=== PATIENT | male | born 1960 | race African-American/Black ===

== ENCOUNTER 2018-10-23 11:32 | Emergency (ER) | payer MEDICAID ==
[~2018-10-23] VITALS: Ht 177.8 cm; Wt 69.0 kg
[2018-10-23] MEDS ORDERED: KETOROLAC 30MG/ML VIAL IV STA (11:58)
[2018-10-23] MEDS ORDERED: SODIUM CHLORIDE 0.9% 1,000 ML IV ONE (11:58)
[2018-10-23 12:44] LABS: HEMATOCRIT. 47.8 % (42.0-52.0); HEMOGLOBIN. 16.4 g/dL (14.0-18.0); MEAN CORPUSCULAR VOLUME 90.5 fL (80.0-94.0); MEAN PLATELET VOLUME 8.4 fl (7.4-10.4); PLATELET 211 x1000/uL (130-400); RED BLOOD CELL COUNT 5.29 mill/uL (4.7-6.1); RED CELL DISTRIBUTION WIDTH 14.9 % (11.6-14.6)
[2018-10-23 12:49] LABS: CHLORIDE 105 mEq/L (98-107)
[2018-10-23 12:52] LABS: PROTHROMBIN TIME 9.9 sec (9.1-11.1)
[2018-10-23 12:55] LABS: ETHANOL BLOOD < 10 mg/dL
[2018-10-23 13:00] LABS: CREATINE KINASE 326 IU/L (39-308)
[2018-10-23 13:02] LABS: CREATINE KINASE MB FRACTION 7.1 ng/mL (0.5-3.6)
[2018-10-23 13:23] LABS: COLOR URINE AMBER (YELLOW); KETONES URINE 1+ (NEGATIVE); LEUKOCYTE ESTERASE URINE NEGATIVE (NEGATIVE); NITRITE URINE NEGATIVE (NEGATIVE); OCCULT BLOOD URINE NEGATIVE (NEGATIVE); PH URINE 5.5 (4.5-8.0); PROTEIN URINE 1+ (NEGATIVE); SPECIFIC GRAVITY URINE 1.029 (1.005-1.030); UROBILINOGEN URINE 0.2 E.U./dL (0.2-1.0)
[2018-10-23 13:27] LABS: CLARITY URINE SL HAZY (CLEAR)
[2018-10-23 13:42] LABS: *AMPHETAMINES SCREEN URINE NEGATIVE (NEGATIVE); *BARBITURATES SCREEN URINE NEGATIVE (NEGATIVE); *BENZODIAZEPINES SCREEN URINE NEGATIVE (NEGATIVE); *COCAINE SCREEN URINE PRESUMTIVE POSITIVE (NEGATIVE)
[2018-10-23 13:43] LABS: CANNABINOID URINE SCREEN PRESUMTIVE POSITIVE (NEGATIVE); METHADONE URINE SCREEN NEGATIVE (NEGATIVE); OPIATES URINE SCREEN NEGATIVE (NEGATIVE); PHENCYCLIDINE URINE SCREEN NEGATIVE (NEGATIVE)
[2018-10-23 13:51] LABS: PLATELET ESTIMATE NORMAL
[2018-10-23 15:15] VITALS: BP 116/58
== END 2018-10-23 15:15 | disposition home or self-care (01) ==
LOC: ER 11:32
DX: M79.18 Myalgia, other site (principal); F14.10 Cocaine abuse, uncomplicated; N28.9 Disorder of kidney and ureter, unspecified
CPT/HCPCS: 36415; 71045; 80053; 80305; 81003; 82010; 82550; 82553; 82962; 83690; 83735; 83880; 84484; 85025; 85610; 93005; 96374; 99284; G0482; J1885; J7030

== ENCOUNTER 2019-05-23 12:19 | Emergency (ER) | payer MEDICAID ==
[~2019-05-23] VITALS: Ht 182.9 cm; Wt 73.0 kg
[2019-05-23] MEDS ORDERED: KETOROLAC 30MG/ML VIAL IV STA (15:09)
[2019-05-23] MEDS ORDERED: ASPIRIN 81MG TABLET PO ONE (15:15)
[2019-05-23 15:19] LABS: BASOPHILS % 0.9 % (0.0-2.0); EOSINOPHILS % 4.6 % (0.0-5.0); HEMATOCRIT. 42.7 % (42.0-52.0); HEMOGLOBIN. 14.6 g/dL (14.0-18.0); LYMPHOCYTES % 41.1 % (20.0-50.0); MEAN CORPUSCULAR HEMOGLOBIN 29.8 pg (28.0-32.0); MEAN CORPUSCULAR VOLUME 87.5 fL (80.0-94.0); MEAN PLATELET VOLUME 8.2 fl (7.4-10.4); MONOCYTES % 9.2 % (2.0-8.0); NEUTROPHILS % 44.2 % (40.0-76.0); PLATELET 189 x1000/uL (130-400); RED BLOOD CELL COUNT 4.88 mill/uL (4.7-6.1); RED CELL DISTRIBUTION WIDTH 16.8 % (11.6-14.6)
[2019-05-23 15:22] LABS: CHLORIDE 106 mEq/L (98-107)
[2019-05-23 16:33] VITALS: BP 116/83
== END 2019-05-23 16:34 | disposition home or self-care (01) ==
LOC: ER 12:57
DX: R07.89 Other chest pain (principal); G89.29 Other chronic pain; M79.605 Pain in left leg; M79.642 Pain in left hand; E11.9 Type 2 diabetes mellitus without complications; F12.10 Cannabis abuse, uncomplicated; H40.9 Unspecified glaucoma; F17.290 Nicotine dependence, other tobacco product, uncomplicated; Z98.890 Other specified postprocedural states; Z87.11 Personal history of peptic ulcer disease
CPT/HCPCS: 36415; 71045; 80053; 83880; 84484; 85025; 93005; 96374; 99284; 99406; J1885

== ENCOUNTER 2025-08-06 11:59 | Inpatient (IN) | payer MEDICAID ==
[~2025-08-06] VITALS: Ht 180.3 cm; Wt 69.2 kg
[2025-08-06 12:01] VITALS: O2SAT 98
[2025-08-06 12:41] LABS: BASOPHILS % 0.5 % (0.0-2.0); EOSINOPHILS % 0.4 % (0.0-5.0); HEMATOCRIT. 47.4 % (42.0-52.0); HEMOGLOBIN. 15.4 g/dL (14.0-18.0); LYMPHOCYTES % 11.9 % (20.0-50.0); MEAN PLATELET VOLUME 8.4 fl (7.4-10.4); MONOCYTES % 6.0 % (2.0-8.0); NEUTROPHILS % 81.2 % (40.0-76.0); PLATELET 136 x1000/uL (130-400); RED BLOOD CELL COUNT 5.18 mill/uL (4.7-6.1); RED CELL DISTRIBUTION WIDTH 15.2 % (11.6-14.6)
[2025-08-06 12:57] LABS: CREATININE 1.3 mg/dL (0.6-1.3); UREA NITROGEN BLOOD 9 mg/dL (9-23)
[2025-08-06 12:58] LABS: ETHANOL BLOOD < 10 mg/dL (<10)
[2025-08-06] MEDS ORDERED: ACETAMINOPHEN 325MG TABLET PO PRN (15:30)
[2025-08-06] MEDS ORDERED: CLONIDINE 0.1MG TABLET PO PRN (15:30)
[2025-08-06] MEDS ORDERED: ZOLPIDEM TARTRATE 5MG TABLET PO PRN (15:30)
[2025-08-06] MEDS ORDERED: ONDANSETRON HCL 4MG/2ML INJ IV PRN (15:30)
[2025-08-06] MEDS ORDERED: MAGNESIUM/ALUMINUM HYDROXIDE/SIMETHICONE 30ML UDC PO PRN (15:30)
[2025-08-06] MEDS ORDERED: NALOXONE HCL 0.4MG/ML VIAL IV PRN (15:45)
[2025-08-06 18:04] VITALS: BP 140/80; PULSE 90; RESP 20; TEMP 36.9184
[2025-08-06] MEDS: PNEUMOCOCCAL 20-VAL CONJ-DIP CRM 0.5ML IM ONE (19:24)
[2025-08-06 20:00] VITALS: BP 133/90; PULSE 67; RESP 19; TEMP 36.6; O2SAT 97
[2025-08-06] MEDS: ENOXAPARIN 40MG/0.4ML SYR SUBCUT SCH (20:23)
[2025-08-06] MEDS: SODIUM CHLORIDE 0.9% 1,000 ML IV SCH (20:23)
[2025-08-06] MEDS: HYDROCODONE/ACETAMINOPHEN 5/325MG TABLET PO PRN (23:18)
[2025-08-07 00:02] LABS: CLARITY URINE CLEAR (CLEAR); COLOR URINE YELLOW (YELLOW); GLUCOSE URINE NEGATIVE (NEGATIVE); KETONES URINE NEGATIVE (NEGATIVE); LEUKOCYTE ESTERASE URINE NEGATIVE (NEGATIVE); NITRITE URINE NEGATIVE (NEGATIVE); OCCULT BLOOD URINE TRACE (NEGATIVE); PH URINE 5.5 (4.5-8.0); PROTEIN URINE NEGATIVE (NEGATIVE); SPECIFIC GRAVITY URINE 1.011 (1.005-1.030); UROBILINOGEN URINE 1.0 E.U./dL (0.2-1.0)
[2025-08-07 00:10] LABS: RBC URINE NONE SEEN /hpf (0-2); SQUAMOUS EPITHELIAL CELL URINE FEW /lpf (RARE/1+); WBC URINE 0-2 /hpf (0-2)
[2025-08-07 00:11] LABS: BACTERIA URINE NONE SEEN
[2025-08-07 00:18] VITALS: BP 128/82; PULSE 86; RESP 17; TEMP 36.6; O2SAT 99
[2025-08-07 00:18] LABS: *AMPHETAMINES SCREEN URINE NEGATIVE (NEGATIVE); *BARBITURATES SCREEN URINE NEGATIVE (NEGATIVE); *BENZODIAZEPINES SCREEN URINE NEGATIVE (NEGATIVE); *COCAINE SCREEN URINE PRESUMPTIVE POSITIVE (NEGATIVE); CANNABINOID URINE SCREEN PRESUMPTIVE POSITIVE (NEGATIVE); ECSTASY MDMA SCREEN URINE NEGATIVE (NEGATIVE); METHADONE URINE SCREEN NEGATIVE (NEGATIVE); OPIATES URINE SCREEN NEGATIVE (NEGATIVE); PHENCYCLIDINE URINE SCREEN NEGATIVE (NEGATIVE)
[2025-08-07 01:19] LABS: TROPONIN I HIGH SENSITIVITY 16 ng/L (3.0-53)
[2025-08-07 01:58] LABS: HEPATITIS C AB NON REACTIVE (Neg) (Negative)
[2025-08-07 04:00] VITALS: BP 137/84; PULSE 61; RESP 19; TEMP 36.3; O2SAT 98
[2025-08-07 06:19] LABS: BASOPHILS % 0.5 % (0.0-2.0); EOSINOPHILS % 1.0 % (0.0-5.0); HEMATOCRIT. 41.4 % (42.0-52.0); HEMOGLOBIN. 13.8 g/dL (14.0-18.0); LYMPHOCYTES % 21.9 % (20.0-50.0); MEAN PLATELET VOLUME 8.9 fl (7.4-10.4); MONOCYTES % 5.5 % (2.0-8.0); NEUTROPHILS % 71.1 % (40.0-76.0); PLATELET 123 x1000/uL (130-400); RED BLOOD CELL COUNT 4.70 mill/uL (4.7-6.1); RED CELL DISTRIBUTION WIDTH 15.0 % (11.6-14.6)
[2025-08-07 06:33] LABS: CREATININE 1.2 mg/dL (0.6-1.3); UREA NITROGEN BLOOD 11 mg/dL (9-23)
[2025-08-07 06:34] LABS: TROPONIN I HIGH SENSITIVITY 13 ng/L (3.0-53)
[2025-08-07 08:58] VITALS: BP 134/91; PULSE 71; RESP 20; TEMP 37.1; O2SAT 98
[2025-08-07] MEDS: PANTOPRAZOLE SODIUM 40 MG/VIAL IV SCH (11:19)
[2025-08-07 12:00] VITALS: BP 154/96; PULSE 65; RESP 20; TEMP 37.1; O2SAT 96
[2025-08-07 16:49] VITALS: BP 167/101; PULSE 67; RESP 20; TEMP 37.2; O2SAT 100
[2025-08-07 20:00] VITALS: BP 138/91; PULSE 69; RESP 20; TEMP 36.9; O2SAT 98
[2025-08-08] VITALS: BP 132/82; PULSE 65; RESP 20; TEMP 36.8; O2SAT 97
[2025-08-08 04:00] VITALS: BP 136/93; PULSE 67; RESP 20; TEMP 37; O2SAT 97
[2025-08-08 07:32] LABS: BASOPHILS % 0.6 % (0.0-2.0); EOSINOPHILS % 2.6 % (0.0-5.0); HEMATOCRIT. 42.8 % (42.0-52.0); HEMOGLOBIN. 14.3 g/dL (14.0-18.0); LYMPHOCYTES % 40.7 % (20.0-50.0); MEAN PLATELET VOLUME 9.2 fl (7.4-10.4); MONOCYTES % 8.1 % (2.0-8.0); NEUTROPHILS % 48.0 % (40.0-76.0); PLATELET 118 x1000/uL (130-400); RED BLOOD CELL COUNT 4.83 mill/uL (4.7-6.1); RED CELL DISTRIBUTION WIDTH 14.8 % (11.6-14.6)
[2025-08-08 07:40] LABS: CREATININE 1.0 mg/dL (0.6-1.3); UREA NITROGEN BLOOD 8 mg/dL (9-23)
[2025-08-08 08:00] VITALS: BP 138/89; PULSE 89; RESP 22; TEMP 36.6; O2SAT 100
[2025-08-08 12:00] VITALS: BP 149/85; PULSE 67; RESP 18; TEMP 36.9; O2SAT 97
[2025-08-08 12:09] VITALS: BP 149/85; PULSE 67; RESP 18; TEMP 98.5
== END 2025-08-08 13:05 | disposition home or self-care (01) | DRG 812 ==
LOC: ER 11:59 → 7WST 13:22 → EDBEDREQ 13:28 → EDBEDREQTM 13:28 → ENRESERV 13:43 → 7WST 17:16
PROVIDERS: ADMIT Internal Medicine; ATTEND Internal Medicine
DX: T40.2X1A Poisoning by other opioids, accidental (unintentional), initial encounter (principal); G92.8 Other toxic encephalopathy; R73.9 Hyperglycemia, unspecified; Y92.89 Other specified places as the place of occurrence of the external cause
CPT/HCPCS: 36415; 71045; 80048; 80305; 80320; 81003; 84443; 84484; 85025; 86705; 87340; 93970; 99285; A4606; J1650; J2470; J7030; G0480